=== PATIENT | male | born 1965 | race Caucasian/White ===

== ENCOUNTER 2018-02-25 10:41 | Outpatient (REF) | payer SELFPAY ==
[2018-02-28 13:03] LABS: Lyme Ab w Rflx to Lyme Confirm Negative
== END 2018-02-25 11:01 ==
LOC: NCHCN 10:41
PROVIDERS: PCP Nurse Practitioner Family; Visit Provider Nurse Practitioner Family
DX: R51 Headache (principal); R42 Dizziness and giddiness; R80.9 Proteinuria, unspecified; H11.30 Conjunctival hemorrhage, unspecified eye
CPT/HCPCS: 86618

== ENCOUNTER 2020-04-29 15:32 | Outpatient (REF) | payer BC, SELFPAY ==
[2020-05-02 16:58] LABS: Patient Race White; SARS-CoV-2 RNA Undetected (Undetected); SARS-CoV-2 Specimen Source Nasal
== END 2020-04-29 15:52 ==
LOC: NCHCN 15:32
PROVIDERS: PCP Nurse Practitioner Family; Visit Provider Nurse Practitioner Family
DX: Z20.828 Contact with and (suspected) exposure to other viral communicable diseases (principal)
CPT/HCPCS: U0003

== ENCOUNTER 2020-11-13 10:34 | Outpatient (REF) | payer BC, SELFPAY ==
[2020-11-14 13:38] LABS: COVID-19 RT-PCR UVMMC Result Negative (Negative)
== END 2020-11-13 10:35 | disposition home or self-care (01) ==
LOC: NCHCN 10:34
PROVIDERS: PCP Nurse Practitioner Family; Visit Provider Nurse Practitioner Family
DX: Z20.822 Contact with and (suspected) exposure to COVID-19 (principal)
CPT/HCPCS: U0003

== ENCOUNTER 2020-12-11 18:56 | Outpatient (REF) | payer BC, SELFPAY ==
[2020-12-13 12:56] LABS: COVID-19 RT-PCR UVMMC Result Negative (Negative)
== END 2020-12-11 18:57 | disposition home or self-care (01) ==
LOC: NCHCN 18:56
PROVIDERS: PCP Nurse Practitioner Family; Visit Provider Family Medicine
DX: R05 Cough (principal); Z20.822 Contact with and (suspected) exposure to COVID-19
CPT/HCPCS: U0003

== ENCOUNTER 2021-04-16 11:42 | Emergency (ER) | payer OTHER, SELFPAY ==
[2021-04-16 11:46] VITALS: BP 143/93; PULSE 59; RESP 15; TEMP 36.4; O2SAT 99
--- NOTE | 2021-04-16 12:35 | ED.GENADUL_ITS ---
Discharge Plan Disposition Patient Disposition: HOME Condition: Stable Discharge Details Clinical Impression: Corneal abrasion Primary Care Provider: [facility] ED Provider: Danyel Ocasio Home Meds and New Rx's Prescriptions: New erythromycin 5 mg/gram (0.5 %) ointment 0.5 inch ophthalmic (eye) QID Qty: 3.5 RF: 0 Continued acetaminophen 500 MG tablet 1,000 mg PO DAILY PRNRF: 0 ibuprofen 200 MG tablet 800 mg PO DAILY RF: 0 Discharge Instructions Instructions: Corneal Abrasion (ED) Additional Instructions: Erythromycin eye ointment as directed. Avoid rubbing your eyes. Kgzv-arm-vdavown Tylenol and/or Motrin as directed for discomfort. Please watch for new or worsening symptoms and return to the ER for any concerns. Lastly, I am giving you a referral to [facility] eye care, I do recommend reaching out to them for reevaluation of your current symptoms and your overall visual acuity 20/20 right eye, 20/50 left eye Referrals: [facility] [Outside] Danyel Ocasio PA [Emergency Provider] - Medical Decision Making Visual acuity 20/20 right eye, 20/50 left eye 56-year-old gentleman, noncontact wearer, presents for left eye injury he sustained yesterday. Patient denies any active blurry or double vision. Examination not consistent with rupture of globe, hyphema, retinal detachment, etc. Patient has injected conjunctiva to the left side of his eye as well and abrasion to the 12 o'clock position after using fluorescein. Will provide referral to eye care center and a prescription of erythromycin. Patient has no additional questions or concerns. Standard discharge and return precautions provided. This documentation was generated using [employer] system, please disregard any oddities of phrase or misspellings. Medical Records Medical records reviewed: Yes I reviewed the patient's medical records. HPI General Mode of arrival: ambulatory . Date/Time Provider Initiated Documentation: 04/16/21 12:35 . Limitations to Documentation: no limitations . Information obtained by: patient . HPI Narrative: This is a 56-year-old gentleman, denies significant past medical history, does not wear contacts, presents to the ER for evaluation of left eye injury that he sustained yesterday while at work around 9 AM after a stick struck him in the eye. He reports initial discomfort and tearing, this morning woke up and his eye was crusted shut. He states this morning when his eye was crusted he had mild blurring but after cleaning the crust from his eye his vision was back to normal. Denies any other injury. Tetanus status is up-to-date. Denies any double vision. Related Data Home Medications Medication Instructions Recorded Confirmed acetaminophen 1,000 mg PO DAILY PRN 12/08/17 04/16/21 ibuprofen 800 mg PO DAILY 12/08/17 04/16/21 erythromycin 0.5 inch OPHTHALMIC (EYE) QID #3.5 04/16/21 g Previous Rx's Medication Instructions Recorded erythromycin 0.5 inch OPHTHALMIC (EYE) QID #3.5 04/16/21 g Allergies Allergy/AdvReac Type Severity Reaction Status Date / Time Penicillins Allergy Unknown Swelling/Ed Unverified 04/16/21 11:53 nae General Stated Complaint: EyeProblem SUJATHA: 3 Review of Systems Constitutional Constitutional: Denies headache(s) Eyes Eyes: Denies diplopia, Reports eye discharge and Reports irritation ENT Ears, Nose, Mouth, and Throat: Denies headache(s) Neurologic Neurologic: Denies headache(s) [facility] Social History Smoking/Tobacco Use Status: Current every day Tobacco Type: smokeless tobacco Smoking risk assessment performed?: Yes Drug use: Never Do you feel safe at home: Yes Do you feel safe in your relationship?: Yes Exam Const General: cooperative, healthy appearing, comfortable and no acute distress Orientation: alert, awake and oriented x3 HENMT Head: normal to inspection, normocephalic and atraumatic Face and sinus: normal facial exam Mouth: moist mucous membranes Eyes Alignment and Position: alignment normal Eyelids: eyelids normal and other (Left upper lid everted for exam) Conjunctivae: conjunctival abnormality left conjunctival injection (Left-sided) Sclera: sclerae normal Cornea: corneas abnormal on the left fluorescein used and abrasion (12 o'clock position) and fluorescein used Pupils: PERRL EOM: EOM intact bilaterally Direct ophthalmoscopy: normal light reflex Neck Neck: normal visual inspection, full ROM, trachea midline and supple Resp Effort & Inspection: normal respiratory effort and able to speak in complete sentences Skin General skin exam: no rashes or lesions noted Neuro General: patient alert, patient awake, moves all extremities and no focal motor deficits Sensory Exam: no sensory deficits noted Psych Appearance: grossly normal Mental Status: mental status grossly normal Course Vital Signs Vital signs: Vital Signs Temperature 36.4 C L 04/16/21 11:46 Pulse 59 L 04/16/21 11:46 Respiratory Rate 15 04/16/21 11:46 Blood Pressure 143/93 H 04/16/21 11:46 Pulse Oximetry 99 04/16/21 11:46 Temperature 36.4 C L 04/16/21 11:46 Temperature Source Temporal Artery Scan 04/16/21 11:46 Pulse 59 L 04/16/21 11:46 Respiratory Rate 15 04/16/21 11:46 Respiratory Effort Non-Labored 04/16/21 11:51 Blood Pressure 143/93 H 04/16/21 11:46 Blood Pressure Position Sitting 04/16/21 11:46 Pulse Oximetry 99 04/16/21 11:46 Oxygen Delivery Method Room Air 04/16/21 11:46 Oxygen Flow Rate 0 04/16/21 11:46 Pain Level 3 04/16/21 11:46
[2021-04-16] MEDS: Balanced Salt Solution 15 ML BTL (12:59)
[2021-04-16] MEDS: Fluorescein STRIPS 100/BOX 1 MG (13:00)
[2021-04-16] MEDS: Tetracaine 0.5% 4 ML BTL (13:00)
== END 2021-04-16 12:59 | disposition home or self-care (01) ==
PROVIDERS: Emergency Provider Physician Assistant; PCP Nurse Practitioner Family
DX: S05.02XA Injury of conjunctiva and corneal abrasion without foreign body, left eye, initial encounter (principal); W22.8XXA Striking against or struck by other objects, initial encounter; Y99.0 Civilian activity done for income or pay
CPT/HCPCS: 99283

== ENCOUNTER 2021-05-26 16:47 | Outpatient (REF) | payer BC, SELFPAY ==
[2021-05-26 18:17] LABS: Hemoglobin A1C 5.8 % (<5.7)
[2021-05-26 18:40] LABS: Calculated LDL 99 mg/dL (<100); Cholesterol 176 mg/dL (<200); HDL Cholesterol 65 mg/dL (40-60); Triglyceride 61 mg/dL (<150)
== END 2021-05-26 16:48 | disposition home or self-care (01) ==
LOC: NCHCN 16:47
PROVIDERS: Visit Provider Nurse Practitioner Family
DX: E66.9 Obesity, unspecified (principal); Z00.00 Encounter for general adult medical examination without abnormal findings
CPT/HCPCS: 80061; 83036

== ENCOUNTER 2021-06-17 15:33 | Outpatient (REF) | payer BC, SELFPAY ==
[2021-06-17 12:25] LABS: Bilirubin Negative (Negative); Blood Negative (Negative); Clarity Clear (Clear); Glucose Negative (Negative); Ketones Negative (Negative); Leukocyte Esterase Negative (Negative); Nitrite Negative (Negative); Specific Gravity >= 1.030 (1.005-1.025); Urobilinogen 0.2 EU/dL (Up TO 0.2)
[2021-06-18 15:46] LABS: Chlamydia Result Negative (Negative); GC Result Negative (Negative)
== END 2021-06-17 15:34 | disposition home or self-care (01) ==
LOC: NCHCN 15:33
PROVIDERS: Visit Provider Family Medicine
DX: R30.0 Dysuria (principal); Z11.3 Encounter for screening for infections with a predominantly sexual mode of transmission
CPT/HCPCS: 87491; 87591; 81003

== ENCOUNTER 2021-08-05 16:24 | Outpatient (REF) | payer BC, SELFPAY ==
[2021-08-05 15:52] LABS: Abs Immature Grans 0.05 10^3/uL (0.0-0.06); Absolute Basophil Count 0.07 10^3/uL (0.0-0.2); Absolute Eosinophil Count 0.11 10^3/uL (0.0-0.7); Absolute Lymphocyte Count 1.67 10^3/uL (1.2-3.4); Absolute Monocyte Count 0.62 10^3/uL (0.1-0.8); Absolute Neutrophil Count 5.33 10^3/uL (1.2-6.7); Basophils % 0.9; Eosinophils % 1.4; HCT 46.8 % (40.0-50.0); HGB 15.3 g/dL (13.5-17.5); Immature Grans % 0.6; Lymphocytes % 21.3; MCH 30.2 pg (27.0-33.0); MCHC 32.7 % (32.0-36.0); MCV 92.3 fL (80-95); MPV 12.3 fL (8.0-11.0); Monocytes % 7.9; Neutrophils % 67.9; Nucleated RBC 0 %; Platelet Count 246 10^3/uL (130-400); RBC 5.07 10^6/uL (4.36-5.78); RDW 13.2 % (11.8-14.1); RDW-SD 45.2 fL; WBC 7.85 10^3/uL (4.4-10.8)
[2021-08-05 16:28] LABS: ALT 85 U/L (16-63); AST 125 U/L (15-37); Alkaline Phosphatase 69 U/L (46-116); Anion Gap 9.7 mmol/L (3-11); BUN 15 mg/dL (7-18); Bilirubin, Total 0.5 mg/dL (0.2-1.0); CO2 26.3 mmol/L (21.0-32.0); Calcium 8.8 mg/dL (8.5-10.1); Chloride 103 mmol/L (98-107); Glucose 97 mg/dL (74-106); Potassium 4.6 mmol/L (3.5-5.1); Sodium 139 mmol/L (136-145); Total Protein 6.9 g/dL (6.4-8.2)
== END 2021-08-05 16:25 | disposition home or self-care (01) ==
LOC: NCHCN 16:24
PROVIDERS: PCP Nurse Practitioner Family; Visit Provider Nurse Practitioner Family
DX: R07.89 Other chest pain (principal); R10.9 Unspecified abdominal pain
CPT/HCPCS: 80053; 85025

== ENCOUNTER 2021-08-06 16:49 | Outpatient (REF) | payer BC, SELFPAY ==
[2021-08-11 16:04] LABS: Helicobacter pylori Ag, Feces Negative (Negative)
== END 2021-08-06 16:50 | disposition home or self-care (01) ==
LOC: NCHCN 16:49
PROVIDERS: PCP Nurse Practitioner Family; Visit Provider Nurse Practitioner Family
DX: R10.9 Unspecified abdominal pain (principal)
CPT/HCPCS: 87338

== ENCOUNTER 2021-08-14 04:34 | Outpatient (CLI) | payer BC, SELFPAY ==
[2021-08-14] MEDS: Albuterol HFA 18 GM 200 PUFF INH IH (15:54)
[2021-08-14] MEDS: Inhaler, Assist Device 1 EACH MC (15:55)
== END 2021-08-14 04:35 | disposition home or self-care (01) ==
LOC: RT 04:34
PROVIDERS: PCP Nurse Practitioner Family; Visit Provider Physician Assistant
DX: R06.02 Shortness of breath (principal); Z77.22 Contact with and (suspected) exposure to environmental tobacco smoke (acute) (chronic); Z82.5 Family history of asthma and other chronic lower respiratory diseases
CPT/HCPCS: 94060

== ENCOUNTER 2021-08-15 12:11 | Outpatient (REF) | payer BC, SELFPAY ==
[2021-08-15 16:30] LABS: ALT 33 U/L (16-63); AST 20 U/L (15-37); Albumin 4.1 g/dL (3.4-5.0); Alkaline Phosphatase 68 U/L (46-116); Amylase 68 U/L (25-115); Bilirubin, Direct 0.1 mg/dL (0.0-0.2); Bilirubin, Total 0.4 mg/dL (0.2-1.0); Lipase 199 U/L (73-393); Total Protein 7.2 g/dL (6.4-8.2)
[2021-08-19 10:56] LABS: Hepatitis A Antibody IgM Negative (Negative); Hepatitis B Core Antibody Negative (Negative); Hepatitis B surface Ag Negative (Negative); Hepatitis C Ab w Rflx HCV PCR Negative (Negative)
== END 2021-08-15 12:12 | disposition home or self-care (01) ==
LOC: NCHCN 12:11
PROVIDERS: PCP Nurse Practitioner Family; Visit Provider Nurse Practitioner Family
DX: R79.89 Other specified abnormal findings of blood chemistry (principal); E66.9 Obesity, unspecified; R10.9 Unspecified abdominal pain
CPT/HCPCS: 80076; 83690; 86704; 86709; 86803; 87340; 82150; 84443

== ENCOUNTER 2022-06-24 16:40 | Outpatient (REF) | payer BC, SELFPAY ==
[2022-06-24 21:30] LABS: Abs Immature Grans 0.05 10^3/uL (0.0-0.06); Absolute Basophil Count 0.05 10^3/uL (0.0-0.2); Absolute Eosinophil Count 0.11 10^3/uL (0.0-0.7); Absolute Lymphocyte Count 2.22 10^3/uL (1.2-3.4); Absolute Monocyte Count 0.75 10^3/uL (0.1-0.8); Absolute Neutrophil Count 7.46 10^3/uL (1.2-6.7); Basophils % 0.5; HCT 48.7 % (40.0-50.0); HGB 16.3 g/dL (13.5-17.5); Immature Grans % 0.5; Lymphocytes % 20.9; MCH 30.2 pg (27.0-33.0); MCHC 33.5 % (32.0-36.0); MCV 90 fL (80-95); MPV 12.5 fL (8.0-11.0); Neutrophils % 70.1; Platelet Count 233 10^3/uL (130-400); RBC 5.39 10^6/uL (4.36-5.78); RDW 13.3 % (11.8-14.1); RDW-SD 44.6 fL; WBC 10.64 10^3/uL (4.4-10.8)
[2022-06-24 22:13] LABS: ALT 33 U/L (16-63); AST 24 U/L (15-37); Albumin 4.3 g/dL (3.4-5.0); Alkaline Phosphatase 82 U/L (46-116); Anion Gap 8.2 mmol/L (3-11); BUN 17 mg/dL (7-18); Bilirubin, Total 0.5 mg/dL (0.2-1.0); CO2 28.8 mmol/L (21.0-32.0); CREATININE 1.1 mg/dL (0.70-1.30); Calcium 9.5 mg/dL (8.5-10.1); Chloride 104 mmol/L (98-107); Estimated GFR 79.28 (mL/min/1.73m2); Glucose 98 mg/dL (74-106); Potassium 4.9 mmol/L (3.5-5.1); Sodium 141 mmol/L (136-145); Total Protein 7.5 g/dL (6.4-8.2)
== END 2022-06-24 16:41 | disposition home or self-care (01) ==
LOC: NCHCN 16:40
PROVIDERS: PCP Nurse Practitioner Family; Visit Provider Family Medicine
DX: R10.9 Unspecified abdominal pain (principal)
CPT/HCPCS: 80053; 85025

== ENCOUNTER 2022-12-29 16:06 | Outpatient (REF) | payer BC, SELFPAY ==
[2022-12-29 21:41] LABS: Calculated LDL 118 mg/dL (<100); Cholesterol 197 mg/dL (<200); HDL Cholesterol 55 mg/dL (40-60); Triglyceride 120 mg/dL (<150)
[2022-12-30 19:54] LABS: PSA, Screening 1.3 ng/mL (<=3.5)
== END 2022-12-29 16:07 | disposition home or self-care (01) ==
LOC: NCHCN 16:06
PROVIDERS: PCP Nurse Practitioner Family; Visit Provider Nurse Practitioner Family
DX: Z00.00 Encounter for general adult medical examination without abnormal findings (principal); R73.03 Prediabetes; R51.9 Headache, unspecified; R39.89 Other symptoms and signs involving the genitourinary system; Z12.5 Encounter for screening for malignant neoplasm of prostate; F17.220 Nicotine dependence, chewing tobacco, uncomplicated; E78.89 Other lipoprotein metabolism disorders
CPT/HCPCS: 80061; 84153; 83036

== ENCOUNTER 2023-09-20 16:47 | Outpatient (REF) | payer BC, SELFPAY ==
[2023-09-24 15:03] LABS: Helicobacter pylori Ag, Feces Negative (Negative)
== END 2023-09-20 16:48 | disposition home or self-care (01) ==
LOC: LBN 16:47
PROVIDERS: PCP Nurse Practitioner Family; Visit Provider Surgery
DX: R10.9 Unspecified abdominal pain (principal); K29.70 Gastritis, unspecified, without bleeding
CPT/HCPCS: 87338

== ENCOUNTER 2024-03-09 15:51 | Outpatient (REF) | payer BC, SELFPAY ==
[2024-03-09 16:53] LABS: Bilirubin Negative (Negative); Blood Negative (Negative); Clarity Clear (Clear); Glucose Negative (Negative); Ketones Negative (Negative); Leukocyte Esterase Negative (Negative); Nitrite Negative (Negative); Specific Gravity 1.025 (1.005-1.025); Urobilinogen 0.2 mg/dL (Up to 0.2); pH 5.5 (5-8)
[2024-03-09 17:40] LABS: COMMENT (LAB VIEW ONLY) 156.17 mg/dL; Microalb ug/mg Crea 11.3 ug/mg Cr
== END 2024-03-09 15:52 | disposition home or self-care (01) ==
LOC: NCHCN 15:51
PROVIDERS: PCP Nurse Practitioner Family; Visit Provider Nurse Practitioner Family
DX: I10 Essential (primary) hypertension (principal)
CPT/HCPCS: 81003; 82043; 82570

== ENCOUNTER 2025-03-06 10:16 | Outpatient (REF) | payer BC, SELFPAY ==
[2025-03-06 14:51] LABS: HCT 46.3 % (40.0-50.0); HGB 15.7 g/dL (13.5-17.5); MCH 30.7 pg (27.0-33.0); MCHC 33.9 % (32.0-36.0); MCV 90 fL (80-95); MPV 12.3 fL (8.0-11.0); Platelet Count 225 10^3/uL (130-400); RBC 5.12 10^6/uL (4.36-5.78); RDW 13.5 % (11.8-14.1); RDW-SD 45.1 fL; WBC 8.07 10^3/uL (4.4-10.8)
[2025-03-06 16:30] LABS: ALT 36 U/L (16-63); AST 22 U/L (15-37); Albumin 4.0 g/dL (3.4-5.0); Alkaline Phosphatase 80 U/L (46-116); Anion Gap 9.2 mmol/L (3-11); BUN 15 mg/dL (7-18); Bilirubin, Total 0.4 mg/dL (0.2-1.0); CO2 29.8 mmol/L (21.0-32.0); Calcium 10.2 mg/dL (8.5-10.1); Calculated LDL 117 mg/dL (<100); Chloride 103 mmol/L (98-107); Cholesterol 208 mg/dL (<200); Estimated GFR 99.00 (mL/min/1.73m2); Glucose 97 mg/dL (74-106); HDL Cholesterol 50 mg/dL (>or=40); Potassium 4.6 mmol/L (3.5-5.1); Sodium 142 mmol/L (136-145); Total Protein 7.1 g/dL (6.4-8.2); Triglyceride 206 mg/dL (<150)
[2025-03-06 18:03] LABS: COMMENT (LAB VIEW ONLY) 117.43 mg/dL; Microalb ug/mg Crea 8.0 ug/mg Cr
[2025-03-06 18:10] LABS: Hemoglobin A1C 6.0 % (<5.7)
[2025-03-07 17:47] LABS: PSA, Screening 2.2 ng/mL (<=3.5)
== END 2025-03-06 10:17 | disposition home or self-care (01) ==
LOC: NCHCN 10:16
PROVIDERS: PCP Nurse Practitioner Family; Visit Provider Nurse Practitioner Family
DX: I10 Essential (primary) hypertension (principal); Z12.5 Encounter for screening for malignant neoplasm of prostate; Z00.00 Encounter for general adult medical examination without abnormal findings; R73.03 Prediabetes
CPT/HCPCS: 80053; 80061; 84153; 85027; 82043; 82570; 83036